=== PATIENT | female | born 1995 | race Caucasian/White ===

== ENCOUNTER 2024-01-24 16:00 | Emergency (ER) | payer OTHER ==
[~2024-01-24] VITALS: Ht 165.1 cm; Wt 59.0 kg
[2024-01-24 16:04] VITALS: BP 108/78; PULSE 98; RESP 16; TEMP 97.7; O2SAT 100
== END 2024-01-24 17:05 ==
LOC: MED 16:00
DX: Z02.89 Encounter for other administrative examinations (principal); F17.210 Nicotine dependence, cigarettes, uncomplicated; Z71.6 Tobacco abuse counseling; V49.9XXA Car occupant (driver) (passenger) injured in unspecified traffic accident, initial encounter; Y93.89 Activity, other specified; Y92.411 Interstate highway as the place of occurrence of the external cause; Y99.8 Other external cause status
CPT/HCPCS: 99283